=== PATIENT | female | born 1940 | race Two or more races ===

== ENCOUNTER → 2023-10-08 | Emergency (ER) | payer OTHER ==
[~2023-10-08] VITALS: Ht 157.5 cm; Wt 81.6 kg
[~2023-10-08] MED LIST: COZAAR25 MG; DEXAMETHASONE SODIUM PHOSPHATE 4 MG/ML VIAL IM STA; KETOROLAC TROMETHAMINE 30 MG VIAL IM STA; LYRICA20 MG/1 ML; ORPHENADRINE CITRATE 30 MG/ML AMPUL IM STA; RELAFEN DS1000 MG
== END | disposition home or self-care (01) ==
LOC: ER 13:04
DX: M54.89 Other dorsalgia (principal); Z88.8 Allergy status to other drugs, medicaments and biological substances; Z91.013 Allergy to seafood
CPT/HCPCS: 96372; 99282; J1100; J1885; J2360